=== PATIENT | male | born 1955 | race Caucasian/White ===

== ENCOUNTER 2016-06-13 18:00 | Emergency (ER) | payer OTHER ==
[2016-06-13] MEDS ORDERED: MIDAZOLAM HCL 5 MG/5 ML VIAL ONE (18:01)
--- NOTE | 2016-06-13 19:02 | CT ---
Name: LI KIM Exam: CT head without contrast Comparison: None Clinical history: Altered mental status Technique: Helical CT was performed through the head. Angled axial reconstructions were obtained. Sagittal and coronal reconstructions were obtained as well. No contrast was given. An automated dose reduction technique was used to minimize patient radiation dose. Findings: There is no shift of midline structures. This exam is mildly degraded due to motion. Mild atrophy is present. There is no mass, mass effect or hemorrhage. Cisterns are uneffaced. Posterior fossa is unremarkable. There is no calvarial fracture. Visualized mastoid air cells are clear. Please see facial bone CT dated 06/13/2016 for further information. Impression: 1. Mild cerebral atrophy 2. Mild motion artifact 3. Please see CT face dated 06/13/2016 for further information Note: The above report was uploaded to [facility]'s electronic medical records system at 1858 hours.
--- NOTE | 2016-06-13 19:04 | CT ---
LI KIM Exam: CT of the face without contrast Comparison:None Clinical history:Altered mental status Procedure: Helical CT using multidetector technique was applied to the face. No contrast was given. Sagittal, axial and coronal images are reviewed. An automated dose reduction technique was used to minimize patient radiation dose. Findings: Visualized intracranial structures show changes of atrophy. Orbits are intact. Paranasal sinuses are clear. 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 There is a small left septal spur causing mild deviation of the normal sized left inferior turbinate. Nasal fracture is identified however the comminuted fracture appears to be old. The nasal spine is intact. Dental caries of upper teeth is suspected. The mandible is intact. Degenerative disease of the visualized cervical spine is present. There is no suspicious fluid collection or mass. Impression: 1. Comminuted nasal fracture which appears old 2. Dental caries are suspected in the maxilla 3. Cerebral atrophy Note:The above report was uploaded to [facility]'s electronic medical records system at 1900 hours.
--- NOTE | 2016-06-13 19:06 | CT ---
Name: LI KIM Exam: CT of the cervical spine without contrast Comparison: None. Clinical history: Trauma. Altered mental status Procedure: Helical CT using multidetector technique was applied to the cervical spine. No contrast was given. Sagittal, axial and coronal images are submitted. And automated dose reduction technique was used to minimize patient radiation dose. Findings: Bone density is within normal limits. There is a grade 1 retrolisthesis of C3 on C4, C4 on C5, C5 on C6 and C6 on C7. Severe degenerative disc disease is present at C3-4, C4-5, C5-6 and C6-7. Posterior osteophyte ptosis is noted at multiple levels. There is no fracture or acute disc. Degenerative facet disease is seen at multiple levels and the most significant changes are identified to the left at C2-C3. The odontoid is intact. Carotid artery calcification is present. Visualized upper lobes are clear. Impression: Advanced multilevel degenerative disc disease. There is no acute bony abnormality. Note: The above report was uploaded to [facility]'s electronic medical records system at 1902 hours.
[2016-06-13 19:09] LABS: BASO % 0.1 % (0.2-1.0); IMM NEUT # 0.1 K/mm3 (0-0.2); IMM NEUT% 0.9 % (0-1); LYMPH # 0.8 (1.0-4.8); LYMPH % 5.7 % (15-45); MEAN CORPUSCULAR HEMOGLOBIN 33.8 pg (27.0-31.0); MEAN CORPUSCULAR HGB CONC 33.1 g/dl (33.0-37.0); MEAN PLATELET VOLUME 9.4 fl (7.4-10.4); MONO # 1.2 (0.0-0.8); MONO % 8.2 % (4-12); NEUT % 85.1 % (43-75); PLATELET COUNT 210 K/mm3 (130-400); RED CELL DISTRIBUTION WIDTH 12.4 % (11.5-14.5)
[2016-06-13 19:11] LABS: HEMATOCRIT 15.1 % (32.0-52.0)
[2016-06-13 19:18] LABS: INR 1.15; PARTIAL THROMBOPLASTIN TIME 17.2 SECONDS (24.5-33.0); PROTHROMBIN TIME 12.2 SECONDS (9.3-11.4)
[2016-06-13 19:20] LABS: ALB/GLOB RATIO 1.7 (>1.0); CALCIUM 7.8 mg/dL (8.6-10.3)
[2016-06-13 19:25] LABS: TROPONIN I 0.02 ng/ml (0.0-0.06)
[2016-06-13] MEDS ORDERED: MORPHINE SULFATE 4 MG/ML SYRINGE ONE ×5 (19:26→22:12)
[2016-06-13 19:29] LABS: CKMB ISOENZYME 52.6 ng/ml (0.6-6.3)
[2016-06-13] MEDS ORDERED: SODIUM CHLORIDE 0.9% 2,000 ML ONE (19:54)
[2016-06-13 19:55] LABS: PH,URINE 6.5 (5.0-8.0); SPECIFIC GRAVITY 1.015 (1.001-1.030); URINE BILIRUBIN 1+ (NEGATIVE); URINE BLOOD 4+ (NEGATIVE); URINE GLUCOSE (UA) NEGATIVE (NEGATIVE); URINE LEUKOCYTE ESTERASE TRACE (NEGATIVE); URINE NITRITE NEGATIVE (NEGATIVE); URINE PROTEIN 3+ (NEGATIVE); URINE UROBILINOGEN NORMAL (0-1 mg/dl)
[2016-06-13] MEDS ORDERED: SODIUM CHLORIDE 0.9% 1,000 ML ONE (19:55)
[2016-06-13 19:56] LABS: PLATELET ESTIMATE NORMAL (NORMAL)
[2016-06-13] MEDS ORDERED: LORAZEPAM 2 MG/ML 1ML SDV ONE ×2 (19:56→20:24)
[2016-06-13 19:57] LABS: URINE APPEARANCE TURBID; URINE COLOR RED
[2016-06-13 20:03] LABS: URINE RBC >100 /hpf
[2016-06-13 20:04] LABS: URINE BACTERIA FEW; URINE EPITHELIAL CELLS 0 /hpf; URINE WBC NEG /hpf
--- NOTE | 2016-06-13 20:21 | RAD ---
Name: LI KIM Exam: Single view chest Comparison: None Clinical history: Altered mental status Findings: 2 AP views of the chest are submitted. Heart is not enlarged. Mediastinum and hilar structures are normal. Multiple old bilateral rib fractures are identified. There is no failure, infiltrate, pleural effusion or pneumothorax. Impression: 1. No acute cardiopulmonary process 2. Multiple old bilateral rib fractures
--- NOTE | 2016-06-13 20:49 | CT ---
LI KIM Noncontrast CT abdomen and Pelvis COMPARISON:None CLINICAL HISTORY:Altered mental status. Gross hematuria. PROCEDURE: Helical CT using multidetector technique was applied to the abdomen and pelvis. No contrast was given per ordering physician. Sagittal, axial and coronal images are reviewed. Findings CT abdomen (noncontrast): Lung bases are clear. Heart is nonenlarged. There is no pericardial effusion. Noncontrast images liver gallbladder, pancreas, spleen and adrenal glands are normal. IVC and portal vein are normal. There is atherosclerosis of a normal caliber aorta. Stomach, small bowel and colon are normal. Degenerative disease of lumbar spine is present. There are old bilateral rib fractures. Severe bilateral hydronephrosis is present. Both ureters are dilated as well. There is no calculus or perinephric stranding. CT pelvis (noncontrast): CT pelvis is somewhat limited due to lack of contrast. Portillo catheter is present. The bladder is distended and thick walled. Within the bladder, heterogeneous material is present with many small calcifications. Some of the high density material represents thrombus. Tumor is suspected and must be excluded. Prostate is not identified. Seminal vesicles are symmetric. Small bowel, colon and appendix are within normal limits. IMPRESSION: 1. Bladder is distended with heterogeneous solid material and some scattered calcifications. Some of this material represents thrombus. Tumor is expected given the calcifications. The above causes bilateral ureteral obstruction as there is severe bilateral hydronephrosis and ureterectasis. 2. No free air, free fluid or suspicious adenopathy on this noncontrast exam Note:The above report was uploaded to [facility]'s electronic medical records system at 2045 hours.
[2016-06-13 22:14] LABS: ABSOLUTE NEUTROPHIL COUNT 12.6 K/mm3 (1.8-7.7); HEMATOCRIT 20.4 % (32.0-52.0); IMM NEUT # 0.1 K/mm3 (0-0.2); IMM NEUT% 0.5 % (0-1); LYMPH # 0.9 (1.0-4.8); LYMPH % 5.9 % (15-45); MEAN CELL VOLUME 93.6 fl (80.0-94.0); MEAN CORPUSCULAR HEMOGLOBIN 32.1 pg (27.0-31.0); MEAN CORPUSCULAR HGB CONC 34.3 g/dl (33.0-37.0); MEAN PLATELET VOLUME 9.1 fl (7.4-10.4); MONO # 0.9 (0.0-0.8); MONO % 6.4 % (4-12); NEUT % 87.2 % (43-75); PLATELET COUNT 134 K/mm3 (130-400); RED CELL DISTRIBUTION WIDTH 12.7 % (11.5-14.5)
[2016-06-13 22:46] LABS: ALB/GLOB RATIO 1.6 (>1.0); ALBUMIN 2.6 gm/dL (3.5-5.7); CALCIUM 6.4 mg/dL (8.6-10.3)
== END 2016-06-13 23:04 | disposition short-term general hospital (02) ==
LOC: ED 18:00
DX: D64.9 Anemia, unspecified (principal); C67.9 Malignant neoplasm of bladder, unspecified; R31.9 Hematuria, unspecified; S09.90XA Unspecified injury of head, initial encounter; R00.0 Tachycardia, unspecified; M50.321 Other cervical disc degeneration at C4-C5 level; M50.323 Other cervical disc degeneration at C6-C7 level; R73.09 Other abnormal glucose; F17.210 Nicotine dependence, cigarettes, uncomplicated; W19.XXXA Unspecified fall, initial encounter; Y92.009 Unspecified place in unspecified non-institutional (private) residence as the place of occurrence of the external cause
CPT/HCPCS: 85025 ×2; 82553; 87086; 80053 ×2; 85730; 85610; 84484; 81001; 71010; 74176; 72125; 70450; 70486; 86920; 86922; 86921; 86901; 86850 ×3; 96375 ×2; 96376 ×4; 99291 ×2; 96374; 51702; 36430; 99292; 82962; 93005; J2060 ×2; J2270 ×5; J2250; J7030 ×2; P9016 ×2